=== PATIENT | female | born 2005 | race African-American/Black ===

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

== ENCOUNTER 2025-02-09 19:14 | Emergency (ER) | payer SELFPAY ==
--- OUTSIDE RECORDS SUMMARY | 2025-02-09 19:17 | XMS REPORT | Continuity of Care Document ---
Author Name Unknown Address [address] [place] [address] [facility] [place] Address 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 Name Role Phone Pcp, Patient Does Not Have A Primary Care Physic gisela YAAKOV CARDENAS Attending Clinician Unavaila ble Yaakov Farris Attending Clinician [phone] Allergies, Adverse Reactions, Alerts Allergy Name Allergy Type Status Severity Reaction(s) Onset Date Inactive Date Treating Clinician Comments Source NO KNOWN ALLERGIE S Drug Class Active [facility] Social History Social Habit Start Date Stop Date Quantity Comments Source Sexual orientation [facility] Sex Assigned At 2005 00:00:00 2005 00:00:00 [facility] Smoking Status Start Date Stop Date Source Tobacco smoking consumption unknown [facility] Medications Ordered Medication Name Filled Medication Name Start Date Stop Date Current Medication? Ordering Clinician Indication Dosage Frequency Signature (SIG) Comments Components Source medroxyPROG ESTERone (PROVERA) 10 mg tablet 02-17 00:00: 00 Yes [id number] 100 20mg Take 2 tablets by mouth in the morning and 2 tablets at noon and 2 tablets in the evening. [facility] ferrous sulfate 325 mg (65 mg iron) tablet 02-17 00:00: 00 03-20 04:59 :00 No [id number] 325mg Take 1 tablet by mouth in the morning and 1 tablet in the evening. Do all this for 30 days. [facility] Vital Signs Vital Name Observation Time Observation Value Comments S ource Systolic blood pressure 2023-02-17 09:05:49 99 mm[Hg] [facility] Diastolic blood pressure 2023-02-17 09:05:49 61 mm[Hg] [facility] Heart rate 2023-02-17 09:05:49 60 /min [facility] Body temperature 2023-02-17 09:05:49 36.39 Miya [facility] Respiratory rate 2023-02-17 09:05:49 15 /min [facility] Oxygen saturation in Arterial blood by Pulse oximetry 2023-02-17 09:05:49 100 /min [facility] Body height 2023-02-17 03:54:00 182.9 cm [facility] Body weight 2023-02-17 03:54:00 52.164 kg [facility] BMI 2023-02-17 03:54:00 15.60 kg/m2 [facility] Body mass index (BMI) [Percentile] Per age and sex 2023-02-17 03:54:00 0.10 % [facility] Procedures Procedure Date / Time Performed Performing Clinician Source TRANSFUSE PACKED RBC 2023-02-17 06:21:00 Claus Cardenas [facility] PREPARE PACKED RBC 2023-02-17 06:10:26 Omari Cardenas [facility] ABORH CONFIRMATION (LAB ONLY) 2023-02-17 05:39:00 Yaakov Cardenas [facility] HB ABO GROUPING 2023-02-17 04:58:00 Marino Cardenas [facility] BASIC METABOLIC PANEL (NA, K, CL, CO2, GLUCOSE, BUN, CREATININE, CA) 2023-02-17 04:10:00 Yaakov Cardenas [facility] CBC WITH DIFF 2023-02-17 04:10:00 Yaakov Cardenas [facility] POCT TEST 2023-02-17 04:05:00 Riki Cardenas [facility] Encounters Start Date/Time End Date/Time Encounter Type Admission Type Attending Clinicians Care Facility Care Department Encounter ID Source 2025-01-31 13:03:09 2025-01-31 13:03:09 Outpatient SFA SFA [id number] [facility] 2025-01-17 10:34:50 2025-01-17 10:34:50 Outpatient SFA SFA [id number] [facility] 2025-01-16 11:04:08 2025-01-16 11:04:08 Outpatient NEHEMIAH SFA [id number] [facility] 2024-08-24 13:59:19 2024-08-24 13:59:19 Outpatient SFA SFA [id number] [facility] 2024-08-15 08:49:44 2024-08-15 08:49:44 Outpatient NEHEMIAH SFA [id number] [facility] 2023-10-04 13:55:35 2023-10-04 13:55:35 Outpatient SFA SFA [id number] [facility] 2023-10-03 17:33:33 2023-10-03 17:33:33 Outpatient SFA SFA [id number] [facility] 2023-02-16 22:57:00 2023-02-17 04:32:00 Emergency [facility] [id number] [facility] 2023-02-16 22:57:00 2023-02-17 04:32:00 Emergency GarrisonYaakov mathis [facility] [id number] [facility] 2023-01-21 16:27:49 2023-01-21 16:27:49 Outpatient SFA SFA [id number] [facility] 2023-01-18 15:28:19 2023-01-18 15:28:19 Outpatient SFA SFA [id number] [facility] Results Test Description Test Time Test Comments Results Result Co mments Source [facility]2023-02-17 05:48:00* Test Item Value Reference Range Interpretation Comme nts ABO & RH (test code = 20) A Positive [facility] METABOLIC PANEL (NA, K, CL, CO2, GLUCOSE, BUN, CREATININE, CA)2023-02-17 04:46:43* Test Item Value Reference Range Interpretation Comme nts NA (test code = 9123218320) 137 mmol/L 135-145 K (test code = 4773438694) 3.3 mmol/L 3.5-5.0 L CL (test code = 0677938698) 102 mmol/L 98-108 CO2 TOTAL (test code = 9965160726) 24 mmol/L 23-31 AGAP (test code = 8211001741) 11 2-16 BUN (test code = 2479216404) 7 mg/dL 7-23 GLUCOSE (test code = 4226720287) 74 mg/dL 70-110 CREATININE (test code = 7625923750) 0.71 mg/dL 0.50-1.04 CALCIUM (test code = 5444612238) 9.3 mg/dL 8.6-10.6 eGFR (test code = 9097667443) 107.2 mL/min/1.73m2 BATSHEVA (test code = BATSHEVA) [...] imaging tests). Lab Interpretation (test code = 70102-0) Abnormal [facility] WITH [id number] 04:33:38* Test Item Value Reference Range Interpretation Comme nts WBC (test code = 6690-2) 8.17 See_Comment [[employer]] The system which generated this result transmitted reference range: 4.50 - 13.50 10*3/?L. The reference range was not used to interpret this result as normal/abnormal. RBC (test code = 789-8) 3.22 See_Comment L [[employer]] The system which generated this result [...] g/dL 32.0-36.0 L RDW-SD (test code = 99892-4) 57.3 fL 38.5-49.0 H RDW-CV (test code = 788-0) 23.6 % 11.5-14.0 H PLT (test code = 777-3) 266 See_Comment [[employer]] The system which generated this result transmitted reference range: 135 - 361 10*3/?L. The reference range was not used to interpret this result as normal/abnormal. MPV (test code = 81526-7) Not Measured IPF % (test code = 9257900705) 12.0 % 0.0-7.4 H Platelet count measured by fluorescence method. NRBC/100 WBC (test code = 3215985316) 0.0 See_Comment [Automated me ssage] The system which generated this result transmitted reference range: 0.0 - 10.0 /100 WBCs. The reference range was not used to interpret this result as normal/abnormal. NRBC x10^3 (test code = 3580194529) See_Comment [Automated messa ge] The system which generated this result transmitted reference range: 10*3/?L. The reference range was not used to interpret this result as normal/abnormal. GRAN MAT (NEUT) % (test code = 770-8) 73.9 % IMM GRAN % (test code = 4504868494) 0.40 % LYMPH % (test code = 736-9) 18.6 % MONO % (test code = 5905-5) 6.5 % EOS % (test code = 713-8) 0.2 % BASO % (test code = 706-2) 0.4 % GRAN MAT x10^3(ANC) (test code = 2506392846) 6.04 10*3/uL 1.50-10.30 IMM GRAN x10^3 (test code = 1233183427) 0.03 10*3/uL 0.00-0.06 LYMPH x10^3 (test code = 731-0) 1.52 10*3/uL 0.70-7.40 MONO x10^3 (test code = 742-7) 0.53 10*3/uL 0.00-0.50 H EOS x10^3 (test code = 711-2) 0.00-0.40 BASO x10^3 (test code = 704-7) 0.03 10*3/uL 0.00-0.10 Lab Interpretation (test code = 18787-4) [facility]normal [id number] 04:05:00* Test Item Value Reference Range Interpretation Comme nts POCT PREG (test code = 1605) Negative On board controls acceptable with C Line (test code = 3574) Yes POCT PREG LOT # (test code = 3575) [id number] POCT PREG TEST DATE ( test code = 3576) 2024-07-20 Lab Interpretation (test cod e = 22791-1) Normal [facility]"
[2025-02-09] MEDS ORDERED: NA CHLORIDE 0.9% 500 ML ONE (20:23)
[2025-02-09 20:36] LABS: Absolute Lymphocytes (CBC) 1.2 K/uL (0.7-4.9); Hematocrit 32.9 % (36.0-45.0); Hemoglobin 10.2 g/dL (12.0-15.0); MCH 20.0 pg (27.0-35.0); MCHC 30.9 g/dL (32.0-36.0); MCV 64.6 fL (80-100); MPV 9.9 fL (7.6-11.3); Nucleated RBC Absolute Count 0.0 (0-0); Nucleated Red Blood Cells % 0.1 % (0-0); RBC Red Blood Cell Count 5.10 M/uL (3.86-4.86); White Blood Count 9.10 thou/uL (4.3-10.9)
[2025-02-09 20:39] LABS: Anion Gap 8.5 mEq/L (5.0-15.0); BUN Blood Urea Nitrogen 9.0 mg/dL (7-18); Glucose Level 114.0 mg/dL (74-106); Potassium 3.5 mEq/L (3.5-5.1)
[2025-02-09 21:02] LABS: Anisocytosis 2+; Blood Morphology Comment NOTED (NOT SEEN); Microcytosis 2+; Ovalocytes 1+; Polychromasia 1+; Stomatocytes 1+; White Blood Cell Scan OK (OK)
--- NOTE | 2025-02-09 21:21 | RAD REPORT ---
EXAMINATION: US PELVIS TRANSABDOMINAL WITH DOPPLER CLINICAL INDICATION: VAGINAL BLEEDING TECHNIQUE: Real-time ultrasonography of the pelvis was performed transabdominally. Color and spectral Doppler evaluation of the ovaries was performed. COMPARISON: 02/03/2025 FINDINGS: UTERUS AND CERVIX: The uterus measures 7.0 x 5.1 x 3.5 cm (cervix to fundus x AP x transverse). The u terus is normal. No masses seen The endometrium demonstrates an IUD in the fundal region. RIGHT OVARY: Normal The right ovary measures 4.0 x 2.9 x 1.9 cm. Normal color and spectral Doppler ev aluation of the right ovary.. LEFT OVARY: Normal The left ovary measures 4.4 x 2.0 x 1.9 cm. Normal Color and spectral Doppler ev aluation of the left ovary.. FREE FLUID: No free fluid. ADDITIONAL FINDINGS: IMPRESSION: No acute abnormality. IUD in the fundal endometrium.
[2025-02-09 21:49] LABS: PT Prothrombin Time 13.0 SECONDS (10-13.0); PTT, Activated Partial Thromb 24.5 SECONDS (27.2-37.4); Protime INR 1.16
[2025-02-09 22:15] LABS: ALT/SGPT 17.0 U/L (13-56); AST/SGOT 14.0 U/L (15-37); Albumin 4.1 g/dL (3.4-5.0); Albumin/Globulin Ratio 0.9 (1.1-1.8); Alkaline Phosphatase 62.0 U/L (45-117); Bilirubin Indirect, Calculated 1.0 mg/dL (0.2-0.8); Globulin 4.5 g/dL (2.3-3.5); Lipase 42.0 U/L (13-75)
--- NOTE | 2025-02-09 23:08 | ER ---
Nurse's Notes [facility] Name: Marlys Zimmer Age: 20 yrs Sex: Female : 2005 Arrival Date: 02/09/2025 Time: 19:14 Bed 6 Private MD: Diagnosis: Anemia in other chronic diseases classified elsewhere;Other specified abnormal uterine and vaginal bleeding Presentation: 02/09 19:29 Chief complaint: Patient states: pt reports heavy bleeding and constant abdominal kb4 cramping x1wk, IUD placed 3wks ago, was seen here 1wk ago for same reason, reported feeling nausea and diaphoretic earlier in the day today. Coronavirus screen: At this time, unable to obtain information related to travel outside the [place] Ebola Screen: No symptoms or risks identified at this time. 19:29 Method Of Arrival: Ambulatory kb4 19:34 Initial Sepsis Screen: Does the patient meet any 2 criteria? No. Patient's initial kb4 sepsis screen is negative. Does the patient have a suspected source of infection? No. Patient's initial sepsis screen is negative. Risk Assessment: Do you want to hurt yourself or someone else? Patient reports no desire to harm self or others. Onset of symptoms was January 28, 2025. 19:34 Acuity: JOHNSON 3 kb4 Triage Assessment: 19:32 General: Appears in no apparent distress. uncomfortable, Behavior is calm, cooperative. kb4 Pain: Complains of pain in suprapubic area. : Reports cramping, vaginal bleeding that is heavy flow dark red. 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 - Infectious Disease History:: Denies. - Social history:: Smoking status: Patient/guardian denies using. Screenin:45 [facility] ED Fall Risk Assessment (Adult) History of falling in the last 3 months, lg3 including since admission No falls in past 3 months (0 pts) Confusion or Disorientation No (0 pts) Intoxicated or Sedated No (0 pts) Impaired Gait No (0 pts) Mobility Assist Device Used No (0 pt) Altered Elimination No (0 pt) Score/Fall Risk Level 0 - 2 = Low Risk Oriented to surroundings, Maintained a safe environment, Educated pt \T\ family on fall prevention, incl call for assistance when getting out of bed, Assessed \T\ reinforced patient's understanding of fall precautions. Abuse screen: Denies threats or abuse. Denies injuries from another. Nutritional screening: No deficits noted. Tuberculosis screening: No symptoms or risk factors identified. Assessment: 19:45 General: Appears in no apparent distress. comfortable, Behavior is calm, cooperative. lg3 Pain: Complains of pain in suprapubic area Pain currently is 6 out of 10 on a pain scale. Quality of pain is described as crampy, heavy, pressure. Neuro: No deficits noted. Saleh Agitation-Sedation Scale (RASS): 0 - Alert and Calm Level of Consciousness is awake, alert, obeys commands, Oriented to person, place, time, situation, Reports dizziness. Cardiovascular: No deficits noted. Denies chest pain, shortness of breath, Capillary refill < 3 seconds Clubbing of nail beds is absent JVD is absent Patient's skin is warm and dry. Respiratory: No deficits noted. Airway is patent Respiratory effort is even, unlabored, Respiratory pattern is regular, symmetrical. GI: Abdomen is flat, non-distended, Abd is soft and non tender X 4 quads. Reports cramping. : Reports vaginal bleeding that is heavy flow. EENT: No deficits noted. No signs and/or symptoms were reported regarding the EENT system. Derm: No deficits noted. No signs and/or symptoms reported regarding the dermatologic system. Skin is intact, is healthy with good turgor, Skin is dry, Skin is normal, Skin temperature is warm. Musculoskeletal: No deficits noted. Circulation, motion, and sensation intact. Range of motion: intact in all extremities. 20:48 Reassessment: Patient appears in no apparent distress at this time. No changes from lg3 previously documented assessment. Patient and/or family updated on plan of care and expected duration. Pain level reassessed. Patient is alert, oriented x 3, equal unlabored respirations, skin warm/dry/pink. 21:49 Reassessment: Patient appears in no apparent distress at this time. No changes from lg3 previously documented assessment. Patient and/or family updated on plan of care and expected duration. Pain level reassessed. Patient is alert, oriented x 3, equal unlabored respirations, skin warm/dry/pink. 22:56 Reassessment: Patient appears in no apparent distress at this time. No changes from lg3 previously documented assessment. Patient and/or family updated on plan of care and expected duration. Pain level reassessed. Patient is alert, oriented x 3, equal unlabored respirations, skin warm/dry/pink. Vital Signs: 19:29 BP 115 / 71; Pulse 76; Resp 18; Temp 99; Pulse Ox 100% ; Weight 58.97 kg; Height 6 ft. kb4 1 in. ; Pain 7/10; 19:45 BP 109 / 73 LA Supine (auto/reg); Pulse 51; Pulse Ox 100% ; lg3 19:45 BP 119 / 85 LA Sitting (auto/reg); Pulse 73; Pulse Ox 99% on R/A; lg3 19:45 BP 110 / 77 LA Standing (auto/reg); Pulse 94; Pulse Ox 99% on R/A; lg3 21:05 BP 115 / 83; Pulse 44; Resp 14; Pulse Ox 100% on R/A; mf3 22:56 BP 107 / 77; Pulse 56; Resp 17 S; Pulse Ox 98% on R/A; lg3 19:29 Body Mass Index 17.15 (58.97 kg, 185.42 cm) - Percentile 2.0 % kb4 19:29 Pain Scale: Adult kb4 ED Course: 19:18 Patient arrived in ED. im 19:31 Ian Mack PA-C is PHCP. cp 19:31 Moises Whitlock DO is Attending Physician. cp 19:32 Shakila Gordon, KAYLEEN is Primary Nurse. lg3 19:32 Arm band placed on left wrist. kb4 19:34 Triage completed. kb4 19:45 Patient has correct armband on for positive identification. Placed in gown. Bed in low lg3 position. Call light in reach. Side rails up X 1. Client placed on continuous cardiac and pulse oximetry monitoring. NIBP monitoring applied. circulation manager on. Door closed. Noise minimized. Warm blanket given. Pillow given. 20:05 Inserted saline lock: 20 gauge in right antecubital area, using aseptic technique. cp4 Blood collected. Flushed with 10 mL NS. 20:06 Initial lab(s) drawn, by me, sent to lab. Urine collected: clean catch specimen, clear, cp4 EKG done, by ED staff, reviewed by Ian Mack PA-C T\T\S collected, blood band applied to patient. 20:09 EKG done, by airframe and powerplant technician. reviewed by Ian Mack PA-C. ts3 21:16 US Pelvis Complete In Process Unspecified. EDMS 23:18 Provided Education on: abnormal uterine bleeding. cp4 23:18 No provider procedures requiring assistance completed. intact, bleeding controlled, No cp4 redness/swelling at site. Pressure dressing applied. Administered Medications: 20:25 Drug: NS 0.9% IV 500 ml 500 ml IV at 1 bolus once; to be given as a bolus over 30 mf3 minutes Volume: 500 ml; Route: IV; Rate: 1 bolus; Site: right antecubital; 23:19 Follow up: IV Status: Completed infusion cp4 Medication: 19:45 VIS not applicable for this client. lg3 Outcome: 23:08 Discharge ordered by MD. cp 23:18 Discharged to home ambulatory, cp4 23:18 Condition: stable 23:18 Discharge instructions given to patient, Instructed on discharge instructions, follow up and referral plans. medication usage, Demonstrated understanding of instructions, follow-up care, medications, Prescriptions given X 1, 23:22 Patient left the ED. cp4 Signatures: Dispatcher [employer] [facility] Ian Mack PA-C PA-C cp Able, Lacie RN RN lg3 Veronica Zelaya Christina cp4 Michaela Porras RN RN kb4 Tika Mata ts3 Cheri Gutierrez, RN RN mf3 Corrections: (The following items were deleted from the chart) 19:32 19:32 PMHx: adhd; kb4 kb4
--- NOTE | 2025-02-09 23:08 | EDPHYS ---
Physician Documentation [facility] Name: Marlys Zimmer Age: 20 yrs Sex: Female : 2005 Arrival Date: 02/09/2025 Time: 19:14 Bed 6 Private MD: ED Physician Moises Whitlock HPI: 02/09 19:35 This 20 yrs old Black Female presents to ER via Ambulatory with complaints of Vaginal cp Bleeding, General Weakness, Dizziness. 19:35 The patient presents with vaginal bleeding that is heavy, now hide and skin colerer. cp 19:35 Onset: The symptoms/episode began/occurred 1 week(s) ago. Patient reports having an IUD cp placed 3 weeks ago. She had intercourse after having the IUD placed and started having bleeding. She reports the bleeding stopped but has returned over the past week. The bleeding is hide and skin colerer today with only having a change to diapers today. 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 - Infectious Disease History:: Denies. - Social history:: Smoking status: Patient/guardian denies using. ROS: 19:40 Constitutional: Negative for body aches, chills, fever, poor PO intake, cp 19:40 Abdomen/GI: Positive for abdominal pain, cp 19:40 : Positive for vaginal bleeding, 19:40 Neuro: Positive for dizziness, weakness, Exam: 20:15 ECG was reviewed by the Attending Physician. cp Vital Signs: 19:29 BP 115 / 71; Pulse 76; Resp 18; Temp 99; Pulse Ox 100% ; Weight 58.97 kg; Height 6 ft. kb4 1 in. ; Pain 7/10; 19:45 BP 109 / 73 LA Supine (auto/reg); Pulse 51; Pulse Ox 100% ; lg3 19:45 BP 119 / 85 LA Sitting (auto/reg); Pulse 73; Pulse Ox 99% on R/A; lg3 19:45 BP 110 / 77 LA Standing (auto/reg); Pulse 94; Pulse Ox 99% on R/A; lg3 21:05 BP 115 / 83; Pulse 44; Resp 14; Pulse Ox 100% on R/A; mf3 22:56 BP 107 / 77; Pulse 56; Resp 17 S; Pulse Ox 98% on R/A; lg3 19:29 Body Mass Index 17.15 (58.97 kg, 185.42 cm) - Percentile 2.0 % kb4 19:29 Pain Scale: Adult kb4 MDM: 19:31 Medical Screening Exam initiated cp 02/09 19:49 Order name: Basic Metabolic Panel; Complete Time: 21:31 lg3 02/09 21:31 Interpretation: Normal except: CL 108; GLUC 114. cp 02/09 19:49 Order name: CBC with Diff; Complete Time: 21:31 lg3 02/09 21:34 Interpretation: Normal except: RBC 5.10; HGB 10.2; HCT 32.9; MCV 64.6; MCH 20.0; MCHC cp 30.9; RDW 21.7; SHANTAL% 82.0; LYM% 13.1. 02/09 19:49 Order name: Test, Urine; Complete Time: 21:31 3 02/09 19:49 Order name: Type And Screen; Complete Time: 21:31 3 02/09 19:49 Order name: Test, Serum; Complete Time: 21:31 lg3 02/09 19:56 Order name: PT-INR; Complete Time: 21:53 cp 02/09 19:56 Order name: Ptt, Activated; Complete Time: 21:53 cp 02/09 21:53 Interpretation: Reviewed. 02/09 19:56 Order name: Lipase; Complete Time: 22:59 cp 02/09 23:00 Interpretation: Reviewed. cp 02/09 19:56 Order name: LFT's; Complete Time: 22:59 cp 02/09 23:00 Interpretation: Normal except: AST 14; BILIT 1.3; BILID 0.3; IBILI, CALC 1.0; TP 8.6; cp GLOB 4.5; A/G 0.9. 02/09 20:40 Order name: CBC Smear Scan; Complete Time: 21:31 EDMS 02/09 19:57 Order name: US Pelvis Complete; Complete Time: 21:31 cp 02/09 21:54 Interpretation: Report reviewed. cp 02/09 19:56 Order name: EKG; Complete Time: 19:56 cp 02/09 19:31 Order name: Orthostatics; Complete Time: 19:48 cp 02/09 19:49 Order name: IV Saline Lock; Complete Time: 20:05 [facility] 02/09 19:49 Order name: Labs collected and sent; Complete Time: 20:05 [facility] 02/09 19:49 Order name: NPO; Complete Time: 20:05 [facility] 02/09 19:56 Order name: EKG - Nurse/Tech; Complete Time: 20:05 EC:15 Rate is 60 beats/min. Rhythm is regular. AL interval is normal. QRS interval is normal. cp QT interval is normal. T waves are Inverted in leads aVR, V3. Interpreted by me. Reviewed by me. Administered Medications: 20:25 Drug: NS 0.9% IV 500 ml 500 ml IV at 1 bolus once; to be given as a bolus over 30 mf3 minutes Volume: 500 ml; Route: IV; Rate: 1 bolus; Site: right antecubital; 23:19 Follow up: IV Status: Completed infusion cp4 Disposition: 02/10 07:47 Co-signature as Attending Physician, Moises ARCHER reviewed the patient's care tt7 provided by the Advanced Practice Provider and agree with the diagnosis and treatment plan. Disposition Summary: 02/09/25 23:08 Discharge Ordered Notes: Location: Home cp Problem: new cp Symptoms: have improved cp Condition: Stable cp Diagnosis - Anemia in other chronic diseases classified elsewhere cp - Other specified abnormal uterine and vaginal bleeding cp Followup: cp - With: Private Physician - When: 2 - 3 days - Reason: Worsening of condition Discharge Instructions: - Discharge Summary Sheet cp - Abnormal Uterine Bleeding cp - Anemia cp - Dysfunctional Uterine Bleeding cp Forms: - Medication Reconciliation Form cp - Antibiotic Education cp - Prescription Opioid Use cp - Patient Portal Instructions cp - Leadership Thank You Letter cp Prescriptions: - Ferrous Sulfate 325 mg (65 mg Iron) Oral tablet - take 1 tablet ORAL route every 12 hours; 30 tablet; Refills: 0, Product cp Selection Permitted Signatures: Dispatcher [facility] Ian Mack PA-C PA-C cp Able, Lacie RN RN lg3 Michaela Porras RN RN kb4 Cheri Gutierrez RN RN 3 Moises Whitlock DO DO tt7 Bella Hercules cp4 Corrections: (The following items were deleted from the chart) 02/09 19:32 19:32 PMHx: adhd; kb4 kb4 19:50 19:50 BASIC METABOLIC PANEL+C.LAB.BRZ ordered. EDMS EDMS 19:50 19:50 CBC+H.LAB.BRZ ordered. EDMS EDMS 19:50 19:50 Test, Urine+UC.LAB.BRZ ordered. EDMS EDMS 19:50 19:50 TYPE AND SCREEN+BB.LAB.BRZ ordered. EDMS EDMS 19:50 19:50 TEST, SERUM+SC.LAB.BRZ ordered. EDMS EDMS 19:56 19:56 PROTIME (+INR)+COAG.LAB.BRZ ordered. EDMS EDMS 19:56 19:56 PTT, ACTIVATED+COAG.LAB.BRZ ordered. EDMS EDMS 19:56 19:56 LIPASE+C.LAB.BRZ ordered. EDMS EDMS 19:56 19:56 HEPATIC FUNCTION+C.LAB.BRZ ordered. EDMS EDMS 20:11 19:50 ABO/RH TYPING+BB.LAB.BRZ ordered. EDMS EDMS 02/10 23:19 02/09 19:35 The patient presents with vaginal bleeding that is cp cp
[2025-02-09 23:49] VITALS: TEMP 99
[2025-02-09 23:52] VITALS: BP 107/77; O2SAT 98
== END 2025-02-09 23:22 | disposition home or self-care (01) ==
LOC: ER 19:14
DX: N93.8 Other specified abnormal uterine and vaginal bleeding (principal); D63.8 Anemia in other chronic diseases classified elsewhere
CPT/HCPCS: 36415; 76856; 80048; 80076; 81025; 83690; 84703; 85025; 85610; 85730; 86850; 86900; 86901; 93005; 96360; 96361; 99285; J7040